=== PATIENT | male | born 1965 | race African-American/Black ===

== ENCOUNTER 2017-12-08 15:32 | Emergency (ER) | payer OTHER ==
[2017-12-08] MEDS: ONDANSETRON (ODT) 4 MG TAB ODT (20:58)
[2017-12-08] MEDS: HYDROmorphONE 0.5 MG/0.5 ML SYG IM (21:01)
[2017-12-08] MEDS: HYDROCODONE/APAP (10/325) TAB PO (21:01)
== END 2017-12-08 21:12 | disposition home or self-care (01) ==
LOC: E/R 15:32
DX: K60.2 Anal fissure, unspecified (principal); Z85.05 Personal history of malignant neoplasm of liver
CPT/HCPCS: 96372; 99284-25